=== PATIENT | female | born 1945 | race Caucasian/White ===

== ENCOUNTER → 2018-11-13 | Outpatient (CLI) | payer MEDICARE ==
--- NOTE | 2018-11-13 15:40 | REP ---
CHEST X-RAY PA AND LATERAL: 11/13/2018. Comparison: 01/11/2011. Clinical history: COPD. Two-views show the lung bah well inflated. Heart size borderline now and with chronic interstitial changes perihilar and lower lung zones suggesting some degree of COPD. The pulmonary arteries are symmetric. I see no venous hypertension or mary edema. Some apical pleural scarring bilaterally, left slightly greater than right. No definite effusion or dense consolidation. The aorta is normal for age. Airway is intact. Bony thorax shows no acute compression deformity or focal lesion. Bones do appear demineralized. Impression: 1. COPD and some fibrotic changes, heavier in the bases with borderline heart size which has certainly increased from the previous study in 2010. I see no pulmonary edema, definite infiltrate or effusion. 2. Aorta normal for age, airway intact and there is minor apical pleural scarring, left greater than right. Tracheal airway intact. Electronically Signed by Xavier Galvan MD 11/13/2018 09:24 P
== END ==
LOC: M SMT 13:09
PROVIDERS: ATTEND Internal Medicine Pulmonary Disease
DX: J44.9 Chronic obstructive pulmonary disease, unspecified (principal)